=== PATIENT | female | born 1980 | race Caucasian/White ===

== ENCOUNTER → 2020-12-26 13:28 | Outpatient (CLI) | payer BC, SELFPAY ==
--- NOTE | ~2020-12-26 | US_ITS ---
EXAMINATION: US pelvic complete w TV DATE: 12/26/2020 14:58 INDICATION: Pelvic and perineal pain Comparison:Ultrasound dated 04/10/2016 TECHNIQUE: Multiple transabdominal and endovaginal sonographic images of the pelvis performed. FINDINGS: The uterus measures 10.5 x 4.6 x 5.9 cm. The endometrial complex measures 10 mm. The right ovary measures 3.1 x 2 x 1.6 cm and the left ovary measures 3.2 x 2.6 x 3.3 cm. There is a 2.1 cm left ovarian cyst. There are small follicles in each ovary. Normal doppler signal in both ovar ies. There is no free fluid in the pelvis. There are no abnormal masses seen on either side. IMPRESSION: 1. Mildly enlarged uterus. 2: Left ovarian cyst measuring 2.1 cm, likely functional. Reviewed, dictated and finalized at location A.
--- NOTE | ~2020-12-26 | MM_ITS ---
EXAMINATION: MM screening kirill BI w joshua HISTORY: Screening mammogram TECHNIQUE: Craniocaudal and mediolateral oblique 3-D tomosynthesis images were obtained and synthetic 2-D images were generated. CAD analysis was submitted and interpreted. COMPARISON: None, baseline BREAST PARENCHYMAL COMPOSITION: The breasts are extremely dense, which lowers the sensitivity of mamm ography. FINDINGS: There is no evidence of suspicious mass, calcification, or architectural distortion to sugg est malignancy in either breast. IMPRESSION: 1. No mammographic evidence of malignancy. 2. Recommend routine screening mammography in one year. BI-RADS Category 1: Negative Reviewed, dictated and finalized at location A.
== END ==
PROVIDERS: PCP Obstetrics & Gynecology; Visit Provider Obstetrics & Gynecology
DX: Z12.31 Encounter for screening mammogram for malignant neoplasm of breast (principal); R10.2 Pelvic and perineal pain; N83.202 Unspecified ovarian cyst, left side
CPT/HCPCS: 76830; 76856; 77063; 77067

== ENCOUNTER → 2021-09-22 15:09 | Outpatient (CLI) | payer BC, SELFPAY ==
--- NOTE | ~2021-09-22 | XR_ITS ---
EXAMINATION: [id number] DATE: 09/22/2021 15:32 INDICATION: Left rib pain. Cough. TECHNIQUE: A frontal view of the chest and 2 views on 3 radiographs of the left ribs were obtained. COMPARISON: Chest single view 04/28/2007 FINDINGS: The chest demonstrates clear lungs without pneumonia, pleural effusion, or pneumothorax. Th e heart size is normal. IMPRESSION: 1. No rib fracture. Reviewed, dictated and finalized at location A. UCTION EXPEDITER IMPRESSION: 1. No rib fracture.
== END ==
PROVIDERS: PCP Nurse Practitioner; Visit Provider Nurse Practitioner
DX: R07.81 Pleurodynia (principal)
CPT/HCPCS: 71101